=== PATIENT | female | born 1995 | race Caucasian/White ===

== ENCOUNTER 2019-01-05 14:10 | Emergency (ER) | payer OTHER, SELFPAY ==
[2019-01-05 14:11] VITALS: BP 135/87; PULSE 104; RESP 16; TEMP 36.6; O2SAT 98; BMI 31.1
--- NOTE | 2019-01-05 15:03 | ED.DCSUM_ITS ---
- ER Visit Summary Date of Service: 01/05/19 Chief Complaint: Right shoulder injury History of Present Illness: The patient is a 24 F who presents with right shoulder injury that occurred 1 week ago. Patient hit her shoulder on a bread machine. Patient states there is a piece of the machine that was sticking out an extra few inches. Patient states her pain is worse when she reaches above her shoulder level. Patient admits to some paresthesias in the right shoulder area. Patient denies any weakness. Patient describes the pain as sharp and stabbing. Physical Examination: Vital signs are stable. Patient is afebrile. Patient is in no acute distress. Musculoskeletal exam reveals tenderness over the right shoulder and scapular area. There is no edema or ecchymosis. There is no bony crepitance or step-off noted. There is no obvious deformity noted. Range of motion was limited in flexion and abduction of the right shoulder secondary to pain. Radial pulses are equal bilateral. Sensation was intact to light touch in the radial, median, and ulnar areas. Test Results: X-rays of the right shoulder were obtained. There is no acute fracture. Emergency Department Course and Treatment: Patient was given work restrictions. Patient was instructed to use Tylenol or ibuprofen as needed for pain. Patient was instructed to use ice to the area. Patient was instructed to follow-up with [facility] in 5-7 days. Patient understood and was agreeable with the plan. All questions were answered. Disposition: Discharge home Impression: Right shoulder contusion This note was generated with [employer] dictation software. It may contain incorrect words, spelling, and punctuation that were not noted in review of the chart prior to signing ED Disposition - Plan for ED Patient: Disposition: Home or Assisted Living Diagnosis: Contusion of right shoulder Instructions: ED Contusion Upper Ext Referrals: [facility] [GROUP OF PHYSICIANS] - 5-7 Days
--- NOTE | 2019-01-05 15:04 | RAD_ITS ---
STUDY: X-RAY - RIGHT SHOULDER REASON FOR EXAM: Female, 23 years old. Pain following injury. TECHNIQUE: 4 view(s) of the shoulder. COMPARISON: None. FINDINGS: Normal glenohumeral articulation. Normal acromioclavicular joint. Normal acromion. Normal humeral head and visualized proximal humerus. The soft tissue structures are unremarkable. Normal visualized pulmonary apex. RAD/Shoulder min 2 Views IMPRESSION: Normal x-ray examination of the shoulder. Electronically Signed: Tristan Stauffer, at 15:18 EDT , Service support ,
== END 2019-01-05 16:01 | disposition home or self-care (01) ==
PROVIDERS: Emergency Provider Emergency Medicine
DX: S40.011A Contusion of right shoulder, initial encounter (principal); W22.8XXA Striking against or struck by other objects, initial encounter; Y93.9 Activity, unspecified; Y92.9 Unspecified place or not applicable; Y99.0 Civilian activity done for income or pay; E66.9 Obesity, unspecified; Z68.31 Body mass index [BMI] 31.0-31.9, adult
CPT/HCPCS: 73030; 99282